=== PATIENT | male | born 1995 | race Caucasian/White ===

== ENCOUNTER 2019-06-04 00:51 | Emergency (ER) | payer OTHER ==
[~2019-06-04] VITALS: Ht 180.3 cm; Wt 176.0 kg
[2019-06-04] MEDS ORDERED: KEFLEX 500 MG E2 CAP PO (04:31)
[2019-06-04] MEDS ORDERED: ULTRAM50 MG PO (04:35)
== END 2019-06-04 04:37 | disposition home or self-care (01) ==
LOC: ED 00:51
DX: S81.812A Laceration without foreign body, left lower leg, initial encounter (principal); S81.811A Laceration without foreign body, right lower leg, initial encounter; S20.212A Contusion of left front wall of thorax, initial encounter; S09.90XA Unspecified injury of head, initial encounter; V49.59XA Passenger injured in collision with other motor vehicles in traffic accident, initial encounter; Y93.89 Activity, other specified; Y92.413 State road as the place of occurrence of the external cause; Y99.9 Unspecified external cause status

== ENCOUNTER 2019-06-14 11:18 | Emergency (ER) | payer OTHER ==
[~2019-06-14] VITALS: Wt 145.1 kg
[~2019-06-14 11:18] MED LIST: KEFLEX 500 MG E2 CAP PO; ULTRAM50 MG PO
== END 2019-06-14 11:37 | disposition home or self-care (01) ==
LOC: ED 11:18
DX: S81.812D Laceration without foreign body, left lower leg, subsequent encounter (principal); V49.59XD Passenger injured in collision with other motor vehicles in traffic accident, subsequent encounter

== ENCOUNTER 2019-08-28 18:24 | Emergency (ER) | payer OTHER ==
[~2019-08-28] VITALS: Ht 180.3 cm; Wt 145.1 kg
--- NOTE | ~2019-08-28 | EKG ---
[place], [place] ELECTROCARDIOGRAM REPORT NAME: MARINA STEIN UNIT #: [id number] ROOM: DOCTOR: EPIPHANY DRAFT REPORT BIRTHDATE: [birth year] [facility] Test Date: 2019-08-28 Test Time: 18:53:07 Pat Name: MARINA STEIN Department: Room: Gender: Med Surg Nurse: : 1995 Requested By: AWAIS SANTIAGO DNP Order Number: [id number] Reading MD: John Alexander MD Measurements Intervals [place] Rate: 85 P: 53 WA: 166 QRS: 55 QRSD: 111 T: 35 QT: 372 QTc: 443 Interpretive Statements Sinus rhythm Low voltage, precordial leads No previous ECG available for comparison Electronically Signed On 08-29-2019 6:13:17 PST by John Alexander MD CM:EKGRPT:ELECTROCARDIOGRAM REPORT [id number] AWAIS ORDOÑEZ DRAFT REPORT AWAIS SANTIAGO DNP
[2019-08-28 19:41] LABS: BASO # 0.1 10*3/uL (0.0-0.1); BASO % 0.5 % (0.0-1.0); EOS # 0.3 10*3/uL (0.0-0.4); EOS % 2.6 % (1.0-4.0); HEMOGLOBIN 12.9 g/dl (14.0-18.0); LYMPH # 2.8 10*3/uL (1.3-4.4); LYMPH % 25.5 % (27.0-41.0); MEAN CELL VOLUME 84.6 fl (80.0-94.0); MEAN CORPUSCULAR HGB 27.3 pg (27.0-31.0); MEAN CORPUSCULAR HGB CONC 32.3 g/dl (33.0-37.0); MEAN PLATELET VOLUME 11.7 fl (9.6-12.3); MONO # 0.8 10*3/uL (0.1-1.0); MONO % 7.7 % (3.0-9.0); NEUT # 6.9 10*3/uL (2.3-7.9); NEUT % 62.9 % (47.0-73.0); PLATELET COUNT AUTOMATED 196 10*3/uL (130-400); RED BLOOD COUNT 4.73 10*6/uL (4.50-5.90); RED CELL DISTRI WIDTH 12.8 % (0-14.5)
[2019-08-28 20:01] LABS: ALBUMIN 3.3 gm/dl (3.1-4.5); ALKALINE PHOSPHATASE 63 U/L (45-117); BUN 10 mg/dl (7-24); CHLORIDE 108 mmol/L (98-107); CREATININE 0.83 mg/dL (0.70-1.30); LIPASE 103 U/L (73-393); SGOT/AST 20 IU/L (3-35); SGPT/ALT 37 U/L (12-78); SODIUM 140 mmol/L (136-145); TOTAL PROTEIN 7.4 gm/dL (6.4-8.2)
[2019-08-28 20:04] LABS: TROPONIN I < 0.015 ng/ml (<0.045)
== END 2019-08-28 21:15 | disposition home or self-care (01) ==
LOC: ED 18:24
PROVIDERS: Nurse Practitioner Family
DX: R07.89 Other chest pain (principal); J45.909 Unspecified asthma, uncomplicated

== ENCOUNTER 2020-04-29 23:40 | Emergency (ER) | payer SELFPAY ==
[2020-04-30] MEDS ORDERED: PROAIR HFA8.5 GM INH (00:30)
== END 2020-04-30 00:55 | disposition home or self-care (01) ==
LOC: ED 23:40
DX: R05 Cough (principal); F41.9 Anxiety disorder, unspecified; J45.909 Unspecified asthma, uncomplicated; F17.200 Nicotine dependence, unspecified, uncomplicated

== ENCOUNTER 2020-07-22 07:07 | Emergency (ER) | payer SELFPAY ==
[~2020-07-22] VITALS: Ht 180.3 cm; Wt 154.2 kg
[~2020-07-22 07:07] MED LIST changes: +PROAIR HFA8.5 GM INH
[2020-07-22 08:40] LABS: BASO % 0.2 % (0.0-1.0); EOS # 0.3 10*3/uL (0.0-0.4); EOS % 3.2 % (1.0-4.0); HEMATOCRIT 35.9 % (42.0-52.0); LYMPH # 2.4 10*3/uL (1.3-4.4); LYMPH % 23.4 % (27.0-41.0); MEAN CELL VOLUME 81.2 fl (80.0-94.0); MEAN CORPUSCULAR HGB 25.3 pg (27.0-31.0); MEAN CORPUSCULAR HGB CONC 31.2 g/dl (33.0-37.0); MONO # 0.9 10*3/uL (0.1-1.0); MONO % 8.4 % (3.0-9.0); NEUT # 6.5 10*3/uL (2.3-7.9); NEUT % 64.1 % (47.0-73.0); PLATELET COUNT AUTOMATED 202 10*3/uL (130-400); RED BLOOD COUNT 4.42 10*6/uL (4.50-5.90); RED CELL DISTRI WIDTH 15.3 % (0-14.5); WHITE BLOOD COUNT 10.2 10*3/uL (4.8-10.8)
[2020-07-22 08:55] LABS: ALBUMIN 2.9 gm/dl (3.1-4.5); ALKALINE PHOSPHATASE 54 U/L (45-117); BUN 9 mg/dl (7-24); CHLORIDE 107 mmol/L (98-107); CREATININE 0.77 mg/dL (0.70-1.30); POTASSIUM 3.4 mmol/L (3.5-5.1); SGOT/AST 12 IU/L (3-35); SGPT/ALT 22 U/L (12-78); SODIUM 139 mmol/L (136-145); TOTAL PROTEIN 7.1 gm/dL (6.4-8.2)
[2020-07-22 08:57] LABS: TROPONIN I < 0.015 ng/ml (<0.045)
[2020-07-22] MEDS ORDERED: PREDNISONE20 M1 PO (11:32)
[2020-07-22] MEDS ORDERED: ZITHROMAX250 MG PO (11:32)
== END 2020-07-22 11:53 | disposition home or self-care (01) ==
LOC: ED 07:07
PROVIDERS: Emergency Medicine
DX: J20.9 Acute bronchitis, unspecified (principal); Z79.899 Other long term (current) drug therapy

== ENCOUNTER 2023-07-22 21:36 | Emergency (ER) | payer OTHER ==
[~2023-07-22] VITALS: Ht 180.3 cm; Wt 195.0 kg
[~2023-07-22 21:36] MED LIST changes: +PREDNISONE20 M1 PO; +PREDNISONE50 MG PO; +ZITHROMAX250 MG PO
== END 2023-07-23 00:30 | disposition home or self-care (01) ==
LOC: ED 21:36
DX: S43.402A Unspecified sprain of left shoulder joint, initial encounter (principal); J45.909 Unspecified asthma, uncomplicated; F41.9 Anxiety disorder, unspecified; Z87.891 Personal history of nicotine dependence; X50.0XXA Overexertion from strenuous movement or load, initial encounter; Y93.89 Activity, other specified; Y92.89 Other specified places as the place of occurrence of the external cause; Y99.0 Civilian activity done for income or pay